=== PATIENT | female | born 1965 | race Caucasian/White ===

== ENCOUNTER 2017-03-26 08:51 | Emergency (ER) | payer BC ==
[2017-03-26 09:25] LABS: BASOPHILS 0.4 % (0-2); EOSINOPHILS 2.3 % (0-7); HEMATOCRIT 43.2 % (36.0-48.0); IMMATURE GRANULOCYTES 0.2 % (0-5); MCH 34.5 pg (26.0-34.0); MCHC 34.7 g/dL (31.0-37.0); MCV 99.3 fL (80.0-100.0); MEAN PLATELET VOLUME 10.5 fL (7.4-10.4); MONOCYTES 8.5 % (2-11); NEUTROPHILS 49.6 % (40-80); PLATELET COUNT 205 10x3/uL (130-400); RBC 4.35 10x6/uL (4.00-5.40); RDW 12.6 % (11.5-14.5); WBC 4.7 10x3/uL (4.8-10.8)
[2017-03-26 09:30] LABS: APPEARANCE HAZY (CLEAR); BILIRUBIN NEGATIVE (NEGATIVE); COLOR YELLOW (YELLOW); GLUCOSE NEGATIVE (NEGATIVE); KETONE MODERATE mg/dL (NEGATIVE); LEUKOCYTE ESTERASE NEGATIVE (NEGATIVE); NITRITE NEGATIVE (NEGATIVE); PROTEIN NEGATIVE (NEGATIVE); UROBILINOGEN NORMAL (NORMAL)
[2017-03-26 09:52] LABS: ALKALINE PHOSPHATASE 80 U/L (46-116); ALT (SGPT) 39 U/L (10-68); BILIRUBIN - TOTAL 0.33 mg/dL (0.2-1.3); CALC OSMOLALITY 280 mosm/kg (275-300); CALCIUM 8.9 mg/dL (8.5-10.1); CARBON DIOXIDE 24.1 mmol/L (21.0-32.0); CHLORIDE - SERUM 105 mmol/L (98-107); CREATININE - SERUM 0.6 mg/dL (0.6-1.3); GLUCOSE 102 mg/dL (74-106); POTASSIUM - SERUM 4.4 mmol/L (3.5-5.1); PROTEIN - SERUM 7.2 g/dL (6.4-8.2); SODIUM 140 mmol/L (136-145); UREA NITROGEN 17 mg/dL (7-18); eGFR NON AFRICAN AMERICAN > 90 mL/min (90-120)
== END 2017-03-26 10:22 | disposition home or self-care (01) ==
LOC: D.ER 08:51
PROVIDERS: Emergency Medicine
DX: R10.9 Unspecified abdominal pain (principal); R10.84 Generalized abdominal pain

== ENCOUNTER 2018-06-01 23:49 | Emergency (ER) | payer BC ==
[~2018-06-01] VITALS: Ht 162.6 cm; Wt 56.8 kg
[2018-06-01 23:56] VITALS: Ht 162.6 cm; Wt 56.8 kg
[2018-06-01] MEDS ORDERED: NORCO 10-325 TA1 TAB PO (23:58)
[2018-06-01] MEDS ORDERED: ESTROGEN (23:58)
[2018-06-01] MEDS ORDERED: COREG (23:58)
[2018-06-02 00:30] LABS: BASOPHILS 0.4 % (0-2); HEMATOCRIT 43.2 % (36.0-48.0); HEMOGLOBIN 15.1 g/dL (12-16); IMMATURE GRANULOCYTES 0.2 % (0-5); LYMPHOCYTES 47.6 % (15-50); MCH 34.2 pg (26.0-34.0); MCV 97.7 fL (80.0-100.0); MEAN PLATELET VOLUME 10.2 fL (7.4-10.4); MONOCYTES 6.3 % (2-11); NEUTROPHILS 42.5 % (40-80); RBC 4.42 10x6/uL (4.00-5.40); RDW 12.7 % (11.5-14.5); WBC 9.7 10x3/uL (4.8-10.8)
[2018-06-02 00:33] LABS: PLATELET COUNT 249 10x3/uL (130-400)
[2018-06-02 00:39] LABS: ALBUMIN 3.8 g/dL (3.4-5.0); ALKALINE PHOSPHATASE 87 U/L (46-116); ALT (SGPT) 44 U/L (10-68); BILIRUBIN - TOTAL 0.18 mg/dL (0.2-1.3); CALC OSMOLALITY 280 mosm/kg (275-300); CALCIUM 8.7 mg/dL (8.5-10.1); CARBON DIOXIDE 21.5 mmol/L (21.0-32.0); CHLORIDE - SERUM 103 mmol/L (98-107); CREATININE - SERUM 0.6 mg/dL (0.6-1.3); GLUCOSE 128 mg/dL (74-106); LIPASE 172 U/L (73-393); POTASSIUM - SERUM 3.3 mmol/L (3.5-5.1); PROTEIN - SERUM 7.4 g/dL (6.4-8.2); SODIUM 139 mmol/L (136-145); UREA NITROGEN 15 mg/dL (7-18); eGFR NON AFRICAN AMERICAN > 90 mL/min (90-120)
[2018-06-02 00:41] LABS: APPEARANCE CLOUDY (CLEAR); BILIRUBIN NEGATIVE (NEGATIVE); COLOR RED (YELLOW); GLUCOSE NEGATIVE (NEGATIVE); KETONE NEGATIVE (NEGATIVE); NITRITE NEGATIVE (NEGATIVE); PROTEIN 1+ mg/dL (NEGATIVE); UROBILINOGEN NORMAL (NORMAL)
[2018-06-02 00:43] LABS: BACTERIA FEW /hpf (NONE SEEN); EPITHELIAL CELLS 0-5 /hpf (0-5); RED CELLS - URINE 25-50 /hpf (0-5); WHITE CELLS - URINE 0-5 /hpf (0-5)
[2018-06-02] MEDS ORDERED: FLOMAX0.4 MG PO (01:10)
[2018-06-02] MEDS ORDERED: ZOFRAN ODT4 MG/UDTAB PO (02:03)
[2018-06-02 02:40] VITALS: BP 126/89
== END 2018-06-02 02:45 | disposition home or self-care (01) ==
LOC: D.ER 23:49
PROVIDERS: Family Medicine
DX: E87.6 Hypokalemia (principal); N20.1 Calculus of ureter

== ENCOUNTER 2018-10-25 01:16 | Emergency (ER) | payer BC ==
[~2018-10-25] VITALS: Ht 162.6 cm; Wt 54.4 kg
[~2018-10-25 01:16] MED LIST: COREG; ESTROGEN; FLOMAX0.4 MG PO; NORCO 10-325 TA1 TAB PO; ZOFRAN ODT4 MG/UDTAB PO
[2018-10-25 01:23] VITALS: Ht 162.6 cm; Wt 54.4 kg
[2018-10-25 01:41] LABS: BASOPHILS 0.5 % (0-2); EOSINOPHILS 7.5 % (0-7); HEMATOCRIT 39.9 % (36.0-48.0); HEMOGLOBIN 14.2 g/dL (12-16); IMMATURE GRANULOCYTES 0.1 % (0-5); LYMPHOCYTES 52.7 % (15-50); MCH 34.5 pg (26.0-34.0); MCHC 35.6 g/dL (31.0-37.0); MCV 96.8 fL (80.0-100.0); MEAN PLATELET VOLUME 9.9 fL (7.4-10.4); MONOCYTES 7.5 % (2-11); NEUTROPHILS 31.7 % (40-80); PLATELET COUNT 221 10x3/uL (130-400); RBC 4.12 10x6/uL (4.00-5.40); RDW 12.2 % (11.5-14.5); WBC 7.6 10x3/uL (4.8-10.8)
[2018-10-25 01:56] LABS: ALBUMIN 3.5 g/dL (3.4-5.0); ALKALINE PHOSPHATASE 90 U/L (46-116); ALT (SGPT) 37 U/L (10-68); BILIRUBIN - TOTAL 0.08 mg/dL (0.2-1.3); CALC OSMOLALITY 287 mosm/kg (275-300); CALCIUM 8.7 mg/dL (8.5-10.1); CARBON DIOXIDE 26.7 mmol/L (21.0-32.0); CHLORIDE - SERUM 107 mmol/L (98-107); CREATININE - SERUM 0.5 mg/dL (0.6-1.3); GLUCOSE 100 mg/dL (74-106); LIPASE 164 U/L (73-393); POTASSIUM - SERUM 4.4 mmol/L (3.5-5.1); PROTEIN - SERUM 6.9 g/dL (6.4-8.2); SODIUM 143 mmol/L (136-145); UREA NITROGEN 20 mg/dL (7-18); eGFR NON AFRICAN AMERICAN > 90 mL/min (90-120)
[2018-10-25 02:54] LABS: APPEARANCE CLEAR (CLEAR); BILIRUBIN NEGATIVE (NEGATIVE); COLOR YELLOW (YELLOW); GLUCOSE NEGATIVE (NEGATIVE); KETONE NEGATIVE (NEGATIVE); NITRITE NEGATIVE (NEGATIVE); PROTEIN NEGATIVE (NEGATIVE); UROBILINOGEN NORMAL (NORMAL)
[2018-10-25] MEDS ORDERED: FLAGYL500 MG PO ×2 (03:06→03:09)
[2018-10-25] MEDS ORDERED: ZOFRAN ODT4 MG/UDTAB PO (03:06)
[2018-10-25] MEDS ORDERED: IMODIUM2 MG PO (03:06)
[2018-10-25 04:19] VITALS: BP 149/105
== END 2018-10-25 04:19 | disposition home or self-care (01) ==
LOC: D.ER 01:16
PROVIDERS: Family Medicine
DX: R11.2 Nausea with vomiting, unspecified (principal); R51 Headache

== ENCOUNTER 2020-09-21 09:48 | Emergency (ER) | payer BC ==
[~2020-09-21] VITALS: Ht 162.6 cm; Wt 55.8 kg
[~2020-09-21 09:48] MED LIST changes: +FLAGYL500 MG PO; +IMODIUM2 MG PO
[2020-09-21 09:56] VITALS: BP 153/112; Ht 162.6 cm; Wt 55.8 kg
== END 2020-09-21 12:42 | disposition home or self-care (01) ==
LOC: D.ER 09:48
DX: G44.209 Tension-type headache, unspecified, not intractable (principal); I10 Essential (primary) hypertension; J45.909 Unspecified asthma, uncomplicated; R11.0 Nausea